=== PATIENT | female | born 1965 | race American Indian/Alaskan Native ===

== ENCOUNTER 2016-09-05 16:24 | Emergency (ER) | payer SELFPAY ==
[2016-09-05] MEDS ORDERED: NACL 0.9% 1000 ML 1,000 ML IV ONE (17:21)
[2016-09-05] MEDS ORDERED: ZOFRAN IV ONE (17:21)
[2016-09-05 17:29] LABS: Basophils % (Auto) 1.2 % (0.0-1.8); Eosinophils % (Auto) 0.1 % (0.0-4.3); Hematocrit 46.8 % (30.3-42.9); Hemoglobin 15.5 gm/dl (10.1-14.3); Mean Corpuscular HGB Conc 33 % (30-34); Mean Corpuscular Hemoglobin 31 pg (28-32); Mean Corpuscular Volume 94 fl (79-97); Platelet Count 136 K/mm3 (140-440); Red Blood Count 4.97 M/mm3 (3.65-5.03); Red Cell Distribution Width 14.7 % (13.2-15.2)
[2016-09-05 17:37] LABS: Albumin/Globulin Ratio 1.3 %; BUN/Creatinine Ratio 18.33; Bilirubin,Total 0.7 mg/dL (0.1-1.2); Blood Urea Nitrogen 11 mg/dL (7-17); Calcium 8.9 mg/dL (8.4-10.2); Carbon Dioxide 21 mmol/L (22-30); Chloride 91.2 mmol/L (98-107); Glucose 159 mg/dL (65-100); Sodium 136 mmol/L (137-145); Total Protein 7.2 g/dL (6.3-8.2)
[2016-09-05 18:08] LABS: Anion Gap 29 mmol/L; Potassium 4.7 mmol/L (3.6-5.0)
[2016-09-05 18:09] LABS: Alanine Aminotransferase 107 units/L (7-56); Alkaline Phosphatase 75 units/L (35-129)
--- NOTE | 2016-09-05 18:54 | Emergency Department Report ---
ED Dizziness HPI - General Chief Complaint: Dizziness Stated Complaint: FAINTING/WEAKNESS Time Seen by Provider: 09/05/16 17:15 Source: patient, EMS Mode of arrival: Stretcher Limitations: No Limitations - History of Present Illness MD Complaint: dizziness, lightheadedness -: Gradual Timing: gradual onset Description: lightheadedness, nausea History of Same: Yes History of Trauma: No Severity: moderate Improves With: remaining still, rehydration Worsens With: movement, position Associated Symptoms: other (N/V/D). denies: ataxia, chest pain, confusion, cough, diaphoresis, fever/chills, loss of appetite, malaise, seizure, shortness of breath - Related Data Previous Rx's Medication Instructions Recorded Last Taken Type Clindamycin [Clindamycin CAP] 300 mg PO Q8H #20 cap 03/16/16 Unknown Rx traMADol [Ultram] 50 mg PO Q6HR PRN #20 tablet 03/16/16 Unknown Rx Allergies Allergy/AdvReac Type Severity Reaction Status Date / Time No Known Allergies Allergy Verified 03/16/16 16:37 ED Review of Systems ROS: Stated complaint: FAINTING/WEAKNESS Other details as noted in HPI Constitutional: denies: chills, fever Eyes: denies: eye pain, eye discharge, vision change ENT: denies: ear pain, throat pain Respiratory: denies: cough, shortness of breath, wheezing Cardiovascular: denies: chest pain, palpitations Endocrine: no symptoms reported Gastrointestinal: nausea, vomiting, diarrhea. denies: abdominal pain Genitourinary: denies: urgency, dysuria, discharge Musculoskeletal: denies: back pain, joint swelling, arthralgia Skin: denies: rash, lesions Neurological: denies: headache, weakness, paresthesias Psychiatric: denies: anxiety, depression Hematological/Lymphatic: denies: easy bleeding, easy bruising ED Past Medical Hx - Past Medical History Hx Hypertension: Yes - Surgical History Additional Surgical History: 1989 - Social History Smoking Status: Current Every Day Smoker Substance Use Type: None - Medications Home Medications: Home Medications Medication Instructions Recorded Confirmed Last Taken Type Clindamycin [Clindamycin CAP] 300 mg PO Q8H #20 cap 03/16/16 Unknown Rx traMADol [Ultram] 50 mg PO Q6HR PRN #20 tablet 03/16/16 Unknown Rx ED Physical Exam - General Limitations: No Limitations General appearance: alert, in no apparent distress - Head Head exam: Present: atraumatic, normocephalic - Eye Eye exam: Present: normal appearance - ENT ENT exam: Present: mucous membranes moist - Neck Neck exam: Present: normal inspection - Respiratory Respiratory exam: Present: normal lung sounds bilaterally. Absent: respiratory distress - Cardiovascular Cardiovascular Exam: Present: normal rhythm, tachycardia. Absent: systolic murmur, diastolic murmur, rubs, gallop - GI/Abdominal GI/Abdominal exam: Present: soft, normal bowel sounds - Extremities Exam Extremities exam: Present: normal inspection - Back Exam Back exam: Present: normal inspection - Neurological Exam Neurological exam: Present: alert, oriented X3 - Psychiatric Psychiatric exam: Present: normal affect, normal mood - Skin Skin exam: Present: warm, dry, intact, normal color. Absent: rash ED Course Vital Signs 09/05/16 09/05/16 16:33 18:15 Temperature 97.5 F L 98 F Pulse Rate 104 H 101 H Respiratory 18 20 Rate Blood Pressure 138/103 Blood Pressure 147/104 [Left] O2 Sat by Pulse 98 97 Oximetry ED Medical Decision Making - Lab Data Result diagrams: 09/05/16 16:59 09/05/16 Unknown - Medical Decision Making patient doing well, better after ivf and zofran , labs negative , will repeat ekg for tachycardia, she is tolerating po and will dc with follow up in 48h Critical care attestation.: If time is entered above; I have spent that time in minutes in the direct care of this critically ill patient, excluding procedure time. ED Disposition Clinical Impression: Dizziness Disposition: DISCHARGED TO HOME OR SELFCARE Is pt being admited?: No Does the pt Need Aspirin: No Condition: Good Instructions: Lightheadedness (ED), Dizziness (ED) Referrals: PRIMARY CARE, [Primary Care Provider] - 3-5 Days Time of Disposition: 19:01
[2016-09-05 19:02] VITALS: BP 137/94
== END 2016-09-05 19:33 | disposition home or self-care (01) ==
LOC: ED 16:24
DX: R42 Dizziness and giddiness (principal); I10 Essential (primary) hypertension; F17.200 Nicotine dependence, unspecified, uncomplicated
CPT/HCPCS: 36415; 80053; 82962; 84484; 85025; 93005; 93010; 96361; 96374; 99284; J2405; J7030

== ENCOUNTER 2019-06-04 10:00 | Emergency (ER) | payer SELFPAY ==
[2019-06-04 10:14] VITALS: BP 197/132
== END 2019-06-04 10:17 | disposition left against medical advice (07) ==
LOC: ED 10:00
DX: J00 Acute nasopharyngitis [common cold] (principal); Z53.21 Procedure and treatment not carried out due to patient leaving prior to being seen by health care provider

== ENCOUNTER 2019-06-06 14:10 | Emergency (ER) | payer OTHER ==
[2019-06-06] MEDS ORDERED: ASPIRIN 325 MG TAB PO ONE (14:41)
[2019-06-06 15:11] LABS: Basophils # (Auto) 0.1 K/mm3 (0.0-0.1); Basophils % (Auto) 1.1 % (0.0-1.8); Eosinophils % (Auto) 0.9 % (0.0-4.3); Hematocrit 44.4 % (30.3-42.9); Hemoglobin 15.2 gm/dl (10.1-14.3); Lymphocytes # (Auto) 1.4 K/mm3 (1.2-5.4); Lymphocytes % (Auto) 24.8 % (13.4-35.0); Mean Corpuscular HGB Conc 34 % (30-34); Mean Corpuscular Volume 95 fl (79-97); Monocytes # (Auto) 0.5 K/mm3 (0.0-0.8); Monocytes % (Auto) 9.2 % (0.0-7.3); Platelet Count 185 K/mm3 (140-440); Red Blood Count 4.68 M/mm3 (3.65-5.03); Red Cell Distribution Width 13.9 % (13.2-15.2)
[2019-06-06 15:31] LABS: BUN/Creatinine Ratio 17; Blood Urea Nitrogen 10 mg/dL (7-17); Calcium 9.9 mg/dL (8.4-10.2); Hemolysis Index 43
--- NOTE | 2019-06-06 15:45 | XRay Report ---
CHEST 1 VIEW 06/06/2019 3:25 PM INDICATION / CLINICAL INFORMATION: Chest Pain. COMPARISON: None available. FINDINGS: SUPPORT DEVICES: None. HEART / MEDIASTINUM: No significant abnormality. LUNGS / PLEURA: No significant pulmonary or pleural abnormality. No pneumothorax. ADDITIONAL FINDINGS: No significant additional findings. IMPRESSION: 1. No acute findings. Signer Name: Guicho Be MD Signed: 06/06/2019 3:40 PM Workstation Name: [id number]
[2019-06-06] MEDS ORDERED: predniSONE 20 MG TAB PO ONE (17:57)
--- NOTE | 2019-06-06 17:57 | Emergency Department Report ---
ED Chest Pain HPI - General Chief Complaint: Chest Pain Stated Complaint: CHEST PAIN/SOB Time Seen by Provider: 06/06/19 15:52 Source: EMS Mode of arrival: Ambulatory Limitations: No Limitations - History of Present Illness Initial Comments: Mrs. Vang is a pleasant 53-year-old female history of hypertension and tobacco abuse who presents with cough chest pain. She had productive cough. She was seen at urgent care x-ray was performed. Diagnosed with bronchitis. She began developing sharp left-sided chest pain only with cough. No vomiting. No shortness of breath. No wheezing. No history of COPD. She does not have a PCP. She requests refill lisinopril. Complaint: chest pain -: Gradual, This afternoon Onset: other (associated with coughing) Pain Location: left chest Severity: mild Quality: sharp Consistency: intermittent, now resolved Improves With: nothing Worsens With: other (cough) - Related Data Previous Rx's Medication Instructions Recorded Last Taken Type Clindamycin [Clindamycin CAP] 300 mg PO Q8H #20 cap 03/16/16 Unknown Rx traMADoL [Ultram] 50 mg PO Q6HR PRN #20 tablet 03/16/16 Unknown Rx Prednisone [predniSONE 10 mg 10 mg PO .TAPER #1 tab.ds.pk 06/06/19 Unknown Rx (6-Day Pack, 21 Tabs)] lisinopriL [Zestril TAB] 20 mg PO QDAY 90 Days #90 tablet 06/06/19 Unknown Rx Allergies Allergy/AdvReac Type Severity Reaction Status Date / Time No Known Allergies Allergy Verified 03/16/16 16:37 Heart Score - HEART Score History: Slightly suspicious EKG: Non-specific Age: 45-65 Risk factors: 1-2 risk factors Troponin: < normal limit HEART Score: 3 ED Review of Systems ROS: Stated complaint: CHEST PAIN/SOB Other details as noted in HPI Comment: All other systems reviewed and negative Constitutional: denies: diaphoresis, fever, malaise Respiratory: cough Cardiovascular: chest pain ED Past Medical Hx - Past Medical History Previous Medical History?: Yes Hx Hypertension: Yes - Surgical History Past Surgical History?: Yes Additional Surgical History: 1989 - Social History Smoking Status: Current Every Day Smoker Substance Use Type: None - Medications Home Medications: Home Medications Medication Instructions Recorded Confirmed Last Taken Type Clindamycin [Clindamycin CAP] 300 mg PO Q8H #20 cap 03/16/16 Unknown Rx traMADoL [Ultram] 50 mg PO Q6HR PRN #20 tablet 03/16/16 Unknown Rx Prednisone [predniSONE 10 mg 10 mg PO .TAPER #1 tab.ds.pk 06/06/19 Unknown Rx (6-Day Pack, 21 Tabs)] lisinopriL [Zestril TAB] 20 mg PO QDAY 90 Days #90 tablet 06/06/19 Unknown Rx ED Physical Exam - General Limitations: No Limitations General appearance: alert, in no apparent distress, other (frequent harsh cough) - Head Head exam: Present: atraumatic, normocephalic - Eye Eye exam: Present: normal appearance - ENT ENT exam: Present: mucous membranes moist - Neck Neck exam: Present: normal inspection, full ROM - Respiratory Respiratory exam: Present: normal lung sounds bilaterally. Absent: respiratory distress, wheezes, rales - Cardiovascular Cardiovascular Exam: Present: regular rate, normal rhythm, normal heart sounds. Absent: systolic murmur, diastolic murmur, rubs, gallop - GI/Abdominal GI/Abdominal exam: Present: soft, normal bowel sounds. Absent: distended, tenderness, guarding, rebound - Extremities Exam Extremities exam: Present: normal inspection - Back Exam Back exam: Present: normal inspection - Neurological Exam Neurological exam: Present: alert, oriented X3 - Psychiatric Psychiatric exam: Present: normal affect, normal mood - Skin Skin exam: Present: warm, dry, intact, normal color. Absent: rash ED Course Vital Signs 06/06/19 06/06/19 14:33 16:03 Pulse Rate 95 H Respiratory 18 18 Rate Blood Pressure 170/115 O2 Sat by Pulse 95 99 Oximetry ED Medical Decision Making - Lab Data Result diagrams: 06/06/19 14:55 06/06/19 14:55 Laboratory Results - last 24 hr 06/06/19 06/06/19 14:55 14:55 WBC 5.5 RBC 4.68 Hgb 15.2 H Hct 44.4 H MCV 95 MCH 33 H MCHC 34 RDW 13.9 Plt Count 185 Lymph % (Auto) 24.8 Petroleum % (Auto) 9.2 H Eos % (Auto) 0.9 Baso % (Auto) 1.1 Lymph # 1.4 Petroleum # 0.5 Eos # 0.0 Baso # 0.1 Seg Neutrophils % 64.0 Seg Neutrophils # 3.5 Sodium 138 Potassium 3.7 Chloride 100.4 Carbon Dioxide 20 L Anion Gap 21 BUN 10 Creatinine 0.6 L Estimated GFR > 60 BUN/Creatinine Ratio 17 Glucose 103 H Calcium 9.9 Troponin T < 0.010 - EKG Data 06/06/19 17:54 EKG obtained 1428 Normal sinus rhythm rate 95 beats a minute normal axis and prolonged QT no ST elevation nonspecific T-wave pattern - Radiology Data Radiology results: report reviewed Chest x-ray no acute process - Medical Decision Making Mrs. Vang has had productive cough recently treated with bronchitis. Chest pain highly atypical for acute coronary syndrome. Suspect bronchitis. No indication of pulmonary embolism or pericarditis. Prescribed prednisone. Strongly recommended smoking cessation. Also provided a refill for lisinopril. Critical care attestation.: If time is entered above; I have spent that time in minutes in the direct care of this critically ill patient, excluding procedure time. ED Disposition Clinical Impression: Acute bronchitis, Chest pain Disposition: TO HOME OR SELFCARE Is pt being admited?: No Does the pt Need Aspirin: No Condition: Stable Instructions: Acute Bronchitis (ED), Chest Pain (ED) Prescriptions: Prednisone [predniSONE 10 mg (6-Day Pack, 21 Tabs)] 10 mg PO .TAPER #1 tab.ds.pk lisinopriL [Zestril TAB] 20 mg PO QDAY 90 Days #90 tablet Referrals: BYRON BRAY MD [Staff Physician] - 3-5 Days [facility] [Outside] - 3-5 Days Forms: Work/School Release Form(ED)
[2019-06-06 18:02] VITALS: BP 162/102
== END 2019-06-06 18:10 | disposition home or self-care (01) ==
LOC: ED 14:10
DX: J20.9 Acute bronchitis, unspecified (principal); I10 Essential (primary) hypertension; F17.200 Nicotine dependence, unspecified, uncomplicated; Z79.899 Other long term (current) drug therapy
CPT/HCPCS: 36415; 71045; 80048; 84484; 85025; 93005; 93010; 99284; J7512

== ENCOUNTER 2019-08-21 10:11 | Emergency (ER) | payer OTHER ==
[2019-08-21] MEDS ORDERED: LISINOPRIL 20 MG TAB PO ONE (10:57)
[2019-08-21 11:03] LABS: Basophils % (Auto) 0.4 % (0.0-1.8); Hemoglobin 14.1 gm/dl (10.1-14.3); Lymphocytes # (Auto) 1.3 K/mm3 (1.2-5.4); Lymphocytes % (Auto) 39.8 % (13.4-35.0); Mean Corpuscular HGB Conc 34 % (30-34); Mean Corpuscular Volume 95 fl (79-97); Monocytes # (Auto) 0.3 K/mm3 (0.0-0.8); Monocytes % (Auto) 10.5 % (0.0-7.3); Red Blood Count 4.41 M/mm3 (3.65-5.03); Red Cell Distribution Width 14.2 % (13.2-15.2)
--- NOTE | 2019-08-21 11:03 | Emergency Department Report ---
ED General Adult HPI - General Chief complaint: High BP Stated complaint: BP HIGH Time Seen by Provider: 08/21/19 10:57 Source: patient Mode of arrival: Ambulatory Limitations: No Limitations - History of Present Illness Initial comments: Mrs. Vang is a 54-year-old female with history of hypertension and tobacco abuse who presents with elevated blood pressure. She was sent from her [employer]'s office for severely elevated blood pressure. She has been in good health. She is symptom-free. Today she had a routine appointment for Pap smear. She cur rently does not have a primary care physician. She is not taking any blood pressure medicine at this time. -: Gradual, week(s) (Several weeks) Severity scale (0 -10): 0 Consistency: constant Improves with: none Worsens with: none Associated Symptoms: denies other symptoms Treatments Prior to Arrival: none - Related Data Previous Rx's Medication Instructions Recorded Last Taken Type Clindamycin [Clindamycin CAP] 300 mg PO Q8H #20 cap 03/16/16 Unknown Rx traMADoL [Ultram] 50 mg PO Q6HR PRN #20 tablet 03/16/16 Unknown Rx Prednisone [predniSONE 10 mg 10 mg PO .TAPER #1 tab.ds.pk 06/06/19 Unknown Rx (6-Day Pack, 21 Tabs)] lisinopriL [Zestril TAB] 20 mg PO QDAY 90 Days #90 tablet 06/06/19 Unknown Rx amLODIPine 5 mg PO DAILY #30 tab 08/21/19 Unknown Rx hydroCHLOROthiazide [HCTZ] 25 mg PO QDAY #30 tablet 08/21/19 Unknown Rx Allergies Allergy/AdvReac Type Severity Reaction Status Date / Time No Known Allergies Allergy Verified 08/21/19 10:12 ED Review of Systems ROS: Stated complaint: BP HIGH Other details as noted in HPI Comment: All other systems reviewed and negative Constitutional: denies: fever Respiratory: denies: cough Cardiovascular: denies: chest pain Gastrointestinal: denies: abdominal pain, nausea, vomiting ED Past Medical Hx - Past Medical History Previous Medical History?: Yes Hx Hypertension: Yes - Surgical History Past Surgical History?: Yes Additional Surgical History: 1989 - Social History Smoking Status: Current Every Day Smoker Substance Use Type: Alcohol - Medications Home Medications: Home Medications Medication Instructions Recorded Confirmed Last Taken Type Clindamycin [Clindamycin CAP] 300 mg PO Q8H #20 cap 03/16/16 Unknown Rx traMADoL [Ultram] 50 mg PO Q6HR PRN #20 tablet 03/16/16 Unknown Rx Prednisone [predniSONE 10 mg 10 mg PO .TAPER #1 tab.ds.pk 06/06/19 Unknown Rx (6-Day Pack, 21 Tabs)] lisinopriL [Zestril TAB] 20 mg PO QDAY 90 Days #90 tablet 06/06/19 Unknown Rx amLODIPine 5 mg PO DAILY #30 tab 08/21/19 Unknown Rx hydroCHLOROthiazide [HCTZ] 25 mg PO QDAY #30 tablet 08/21/19 Unknown Rx ED Physical Exam - General Limitations: No Limitations General appearance: alert, in no apparent distress - Head Head exam: Present: atraumatic, normocephalic - Eye Eye exam: Present: normal appearance - ENT ENT exam: Present: mucous membranes moist - Neck Neck exam: Present: normal inspection, full ROM - Respiratory Respiratory exam: Present: normal lung sounds bilaterally. Absent: respiratory distress, wheezes, rhonchi - Cardiovascular Cardiovascular Exam: Present: regular rate, normal rhythm, normal heart sounds. Absent: systolic murmur, diastolic murmur, rubs, gallop - GI/Abdominal GI/Abdominal exam: Present: soft, normal bowel sounds. Absent: distended, tenderness, guarding, rebound - Extremities Exam Extremities exam: Present: normal inspection - Neurological Exam Neurological exam: Present: alert, oriented X3 - Psychiatric Psychiatric exam: Present: normal affect, normal mood - Skin Skin exam: Present: warm, dry, intact, normal color. Absent: rash ED Course Vital Signs 08/21/19 08/21/19 10:15 10:55 Temperature 97.9 F Pulse Rate 82 83 Respiratory 20 14 Rate Blood Pressure 230/134 Blood Pressure 229/140 [Left] O2 Sat by Pulse 99 100 Oximetry ED Medical Decision Making - Lab Data Result diagrams: 08/21/19 10:27 08/21/19 10:27 Laboratory Results - last 24 hr 08/21/19 08/21/19 10:27 10:27 WBC 3.3 L RBC 4.41 Hgb 14.1 Hct 42.0 MCV 95 MCH 32 MCHC 34 RDW 14.2 Lymph % (Auto) 39.8 H [place] % (Auto) 10.5 H Eos % (Auto) 1.0 Baso % (Auto) 0.4 Lymph # 1.3 Tift # 0.3 Eos # 0.0 Baso # 0.0 Seg Neutrophils % 48.3 Seg Neutrophils # 1.6 L Sodium 142 Potassium 3.9 Chloride 101.9 Carbon Dioxide 23 Anion Gap 21 BUN 10 Creatinine 0.6 L Estimated GFR > 60 BUN/Creatinine Ratio 17 Glucose 96 Calcium 9.8 - EKG Data 08/21/19 11:04 EKG NSR 75 bpm right bundle branch prolonged QT No ST elevation - Medical Decision Making Mrs. Vang presents with asymptomatic hypertensive urgency. CBC chemistry within normal limits. I have prescribed amlodipine hydrochlorothiazide. Also provided primary care physician. She received p.o. antihypertensive medications here in the emergency department Repeat blood pressure 184/106 Critical care attestation.: If time is entered above; I have spent that time in minutes in the direct care of this critically ill patient, excluding procedure time. ED Disposition Clinical Impression: Asymptomatic hypertensive urgency Disposition: DC-01 TO HOME OR SELFCARE Is pt being admited?: No Does the pt Need Aspirin: No Condition: Stable Instructions: Hypertension (ED) Prescriptions: amLODIPine 5 mg PO DAILY #30 tab hydroCHLOROthiazide [HCTZ] 25 mg PO QDAY #30 tablet Referrals: BYRON BRAY MD [Staff Physician] - 3-5 Days Forms: Work/School Release Form(ED)
[2019-08-21 11:24] LABS: BUN/Creatinine Ratio 17; Blood Urea Nitrogen 10 mg/dL (7-17); Calcium 9.8 mg/dL (8.4-10.2); Hemolysis Index 6
[2019-08-21 11:57] VITALS: BP 181/115
[2019-08-21 12:10] LABS: Platelet Count 109 K/mm3 (140-440)
== END 2019-08-21 12:03 | disposition home or self-care (01) ==
LOC: ED 10:11
DX: I16.0 Hypertensive urgency (principal); F17.200 Nicotine dependence, unspecified, uncomplicated; Z98.890 Other specified postprocedural states; Z79.2 Long term (current) use of antibiotics; Z79.899 Other long term (current) drug therapy
CPT/HCPCS: 36415; 80048; 85025; 93005; 93010; 99283

== ENCOUNTER 2020-10-13 22:46 | Emergency (ER) | payer OTHER ==
[2020-10-13] MEDS ORDERED: ASPIRIN 325 MG TAB PO ONE (22:54)
[2020-10-13 23:30] LABS: Basophils # (Auto) 0.1 K/mm3 (0.0-0.1); Basophils % (Auto) 1.3 % (0.0-1.8); Eosinophils % (Auto) 0.4 % (0.0-4.3); Hematocrit 47.4 % (30.3-42.9); Hemoglobin 16.4 gm/dl (10.1-14.3); Lymphocytes # (Auto) 2.5 K/mm3 (1.2-5.4); Lymphocytes % (Auto) 31.7 % (13.4-35.0); Mean Corpuscular HGB Conc 35 % (30-34); Mean Corpuscular Volume 93 fl (79-97); Monocytes # (Auto) 0.6 K/mm3 (0.0-0.8); Monocytes % (Auto) 7.4 % (0.0-7.3); Platelet Count 194 K/mm3 (140-440); Red Blood Count 5.07 M/mm3 (3.65-5.03); Red Cell Distribution Width 14.1 % (13.2-15.2)
[2020-10-13 23:59] LABS: Alanine Aminotransferase 12 units/L (7-56); Albumin 5.3 g/dL (3.9-5); BUN/Creatinine Ratio 12; Blood Urea Nitrogen 23 mg/dL (7-17); Calcium 10.4 mg/dL (8.4-10.2); Hemolysis Index 10
--- NOTE | 2020-10-14 | XRay Report ---
CHEST 2 VIEWS 2328 INDICATION / CLINICAL INFORMATION: dizzines COMPARISON: None available. FINDINGS: SUPPORT DEVICES: None. HEART / MEDIASTINUM: No significant abnormality. LUNGS / PLEURA: No significant pulmonary or pleural abnormality. No pneumothorax. ADDITIONAL FINDINGS: No significant additional findings. IMPRESSION: No significant acute abnormality Signer Name: Shay Ahmadi MD Signed: 10/13/2020 11:55 PM Workstation Name: [id number]
[2020-10-14 02:59] VITALS: BP 149/97
--- NOTE | 2020-10-14 03:04 | Emergency Department Report ---
ED Dizziness HPI - General Chief Complaint: Dizziness Stated Complaint: DIZZY,NAUSEA, POSS HIGH BP Time Seen by Provider: 10/14/20 02:57 Source: patient Mode of arrival: Ambulatory Limitations: No Limitations - History of Present Illness Initial Comments: Patient is a 55-year-old female who presents with lightheadedness that is been going on for today. Patient states that she ran out of her blood pressure medicine and she had some diaphoresis with some lightheadedness. Last time this occurred she had to be admitted to the hospital for hypertensive emergency. She currently denies having any pain any nausea or vomiting any shortness of breath or any leg swelling. Patient also states that before this occurred she was eating pork ribs that her cousin made. - Related Data Previous Rx's Medication Instructions Recorded Last Taken Type hydroCHLOROthiazide [HCTZ] 25 mg PO QDAY #30 tablet 08/21/19 Unknown Rx lisinopriL [Zestril TAB] 20 mg PO QDAY tablet 05/29/20 Unknown Rx Metoprolol [Lopressor TAB] 50 mg PO BID #60 tablet 10/14/20 Unknown Rx amLODIPine 10 mg PO DAILY #30 tablet 10/14/20 Unknown Rx Allergies Allergy/AdvReac Type Severity Reaction Status Date / Time No Known Allergies Allergy Verified 05/27/20 17:22 ED Review of Systems ROS: Stated complaint: DIZZY,NAUSEA, POSS HIGH BP Other details as noted in HPI Constitutional: diaphoresis, weakness. denies: chills, fever Eyes: denies: eye pain, eye discharge, vision change ENT: denies: ear pain, throat pain Respiratory: denies: cough, shortness of breath, wheezing Cardiovascular: denies: chest pain, palpitations Endocrine: no symptoms reported Gastrointestinal: denies: abdominal pain, nausea, diarrhea Genitourinary: denies: urgency, dysuria, discharge Musculoskeletal: denies: back pain, joint swelling, arthralgia Skin: denies: rash, lesions Neurological: denies: headache, weakness, paresthesias Psychiatric: denies: anxiety, depression Hematological/Lymphatic: denies: easy bleeding, easy bruising ED Past Medical Hx - Past Medical History Previous Medical History?: Yes Hx Hypertension: Yes Hx Congestive Heart Failure: No Hx Diabetes: No Hx Asthma: No Hx COPD: No - Surgical History Past Surgical History?: Yes Additional Surgical History: 1989 - Social History Smoking Status: Current Every Day Smoker Substance Use Type: None - Medications Home Medications: Home Medications Medication Instructions Recorded Confirmed Last Taken Type hydroCHLOROthiazide [HCTZ] 25 mg PO QDAY #30 tablet 08/21/19 05/28/20 Unknown Rx lisinopriL [Zestril TAB] 20 mg PO QDAY tablet 05/29/20 Unknown Rx Metoprolol [Lopressor TAB] 50 mg PO BID #60 tablet 10/14/20 Unknown Rx amLODIPine 10 mg PO DAILY #30 tablet 10/14/20 Unknown Rx ED Physical Exam - General Limitations: No Limitations General appearance: alert, in no apparent distress - Head Head exam: Present: atraumatic, normocephalic - Eye Eye exam: Present: normal appearance - ENT ENT exam: Present: mucous membranes moist - Neck Neck exam: Present: normal inspection - Respiratory Respiratory exam: Present: normal lung sounds bilaterally. Absent: respiratory distress - Cardiovascular Cardiovascular Exam: Present: regular rate, normal rhythm. Absent: systolic murmur, diastolic murmur, rubs, gallop - GI/Abdominal GI/Abdominal exam: Present: soft, normal bowel sounds - Extremities Exam Extremities exam: Present: normal inspection - Back Exam Back exam: Present: normal inspection - Neurological Exam Neurological exam: Present: alert, oriented X3 - Psychiatric Psychiatric exam: Present: normal affect, normal mood - Skin Skin exam: Present: warm, dry, intact, normal color. Absent: rash ED Course Vital Signs 10/13/20 10/14/20 10/14/20 22:50 02:58 03:02 Temperature 97.7 F Pulse Rate 91 H 84 Respiratory 18 17 17 Rate Blood Pressure 155/98 Blood Pressure 149/97 [Left] O2 Sat by Pulse 99 98 97 Oximetry ED Medical Decision Making - Lab Data Result diagrams: 10/13/20 22:57 10/13/20 22:57 Lab Results 10/13/20 10/13/20 10/14/20 Range/Units 22:57 22:57 01:41 WBC 8.0 (4.5-11.0) K/mm3 RBC 5.07 H (3.65-5.03) M/mm3 Hgb 16.4 H (10.1-14.3) gm/dl Hct 47.4 H (30.3-42.9) % MCV 93 (79-97) fl MCH 32 (28-32) pg MCHC 35 H (30-34) % RDW 14.1 (13.2-15.2) % Plt Count 194 (140-440) K/mm3 Lymph % (Auto) 31.7 (13.4-35.0) % [place]es % (Auto) 7.4 H (0.0-7.3) % Eos % (Auto) 0.4 (0.0-4.3) % Baso % (Auto) 1.3 (0.0-1.8) % Lymph # (Auto) 2.5 (1.2-5.4) K/mm3 [place]es # (Auto) 0.6 (0.0-0.8) K/mm3 Eos # (Auto) 0.0 (0.0-0.4) K/mm3 Baso # (Auto) 0.1 (0.0-0.1) K/mm3 Seg Neutrophils % 59.2 (40.0-70.0) % Seg Neutrophils # 4.8 (1.8-7.7) K/mm3 Sodium 136 L (137-145) mmol/L Potassium 4.0 (3.6-5.0) mmol/L Chloride 93.8 L (98-107) mmol/L Carbon Dioxide 23 (22-30) mmol/L Anion Gap 23 mmol/L BUN 23 H (7-17) mg/dL Creatinine 2.0 H (0.6-1.2) mg/dL Estimated GFR 31 ml/min BUN/Creatinine Ratio 12 % Glucose 122 H (65-100) mg/dL Calcium 10.4 H (8.4-10.2) mg/dL Total Bilirubin 0.50 (0.1-1.2) mg/dL AST 16 (5-40) units/L ALT 12 (7-56) units/L Alkaline Phosphatase 75 (35-129) units/L Troponin T < 0.010 < 0.010 (0.00-0.029) ng/mL Total Protein 7.9 (6.3-8.2) g/dL Albumin 5.3 H (3.9-5) g/dL Albumin/Globulin Ratio 2.0 % - EKG Data -: EKG Interpreted by Me - EKG Data 10/14/20 03:[address] segment elevation no T wave inversion normal sinus rhythm - Radiology Data Radiology results: report reviewed, image reviewed Chest x-ray: Shows no acute cardiopulmonary disease - Medical Decision Making Chief medical diagnosis: Hypertensive urgency Differential medical diagnosis: Non-STEMI, arrhythmia I will get CBC, BMP 2 sets of troponin EKG and chest x-ray ED work-up is unremarkable I will discharge patient home with refills of her blood pressure medication Critical care attestation.: If time is entered above; I have spent that time in minutes in the direct care of this critically ill patient, excluding procedure time. ED Disposition Clinical Impression: Dizziness HTN (hypertension) Qualifiers: Hypertension type: unspecified Qualified Code(s): I10 - Essential (primary) hypertension Disposition: - TO HOME OR SELFCARE Is pt being admited?: No Does the pt Need Aspirin: No Condition: Stable Instructions: Preventing Hypertension, Hypertension (ED) Prescriptions: amLODIPine 10 mg PO DAILY #30 tablet Metoprolol [Lopressor TAB] 50 mg PO BID #60 tablet
--- NOTE | 2020-10-14 10:07 | Electrocardiograph Report ---
[facility] Test Date: 2020-10-13 Test Time: 23:11:27 Pat Name: KIT DAVIES Department: Room: Gender: F Clinical Applications Specialist: TAVO : 1965 Requested By: AMISHA YUEN Order Number: [id number] Reading MD: Evangelina Tinajero Measurements Intervals [place] Rate: 88 P: 81 [place]: 132 QRS: -20 QRSD: 139 T: QT: 422 QTc: 510 Interpretive Statements Sinus rhythm Probable left atrial enlargement Right bundle branch block No previous ECG available for comparison Electronically Signed On 10-14-2020 10:07:23 EDT by Evangelina Tinajero
== END 2020-10-14 03:11 | disposition home or self-care (01) ==
LOC: ED 22:46
DX: R42 Dizziness and giddiness (principal); I10 Essential (primary) hypertension; F17.200 Nicotine dependence, unspecified, uncomplicated; Z98.890 Other specified postprocedural states; Z79.899 Other long term (current) drug therapy
CPT/HCPCS: 36415; 71046; 80053; 84484; 85025; 93005